=== PATIENT | male | born 1985 | race Caucasian/White ===

== ENCOUNTER 2017-02-27 15:00 | Emergency (ER) | payer SELFPAY ==
[2017-02-27 15:21] VITALS: RESP 16; TEMP 98
[2017-02-27] MEDS ORDERED: cefTRIAXone Inj 1 GM in Lidocaine Inj 1% 2.1 ML IM ONE (15:32)
--- NOTE | 2017-02-28 07:45 | PDOC ---
Upper Respiratory HPI - General Chief Complaint: Respiratory Complaint Stated Complaint: SORE THROAT, EARACHE Date Seen by Provider: 02/27/17 Time Seen by Provider: 15:15 Source: POSITIVE: Patient Exam Limitations: POSITIVE: No limitations Nurse's Notes Reviewed & Considered: Yes - History of Present Illness Initial Comments: The patient is a 31-year-old male. He states that for the past 3 days he's had a cough and mild sore throat. Over the past day or so he has developed left ear pain. He states his sputum is mucoid and "brownish". No chest pain. No known fevers or chills. No GI or symptoms. No rashes or skin changes. Timing: REPORTS: Gradual, Getting Worse Duration: >24 hours (Approximately 3 days) Severity: Moderate Quality: REPORTS: "Pain" (Left ear pain) Context: DENIES: Recent Foreign Travel, Insect Bite, Tick Bite, Multiple Pt's w / Same Sx, Recent Chemotherapy, Other Modifying Factors: improves with: Coughing. worse with: Rest, Exertion, OTC Cough Expectorant, OTC Cough Suppressant, Deep Breathing, Lying Flat, Heat, Cold , Other Associated Symptoms: REPORTS: Earache (Left ear pain), Runny Nose (Nasal congestion), Sinus Drainage, Sore Throat (Mild), Cough (As above). DENIES: Fever, Chills, Sweating, Sinus Pain, Hoarseness, Allergy, Hay Fever, Chest Pain , Bloody Cough, Productive Cough, Shortness of Breath, Hurts to Breathe, Headache, Other Similar Symptoms Previously: No Recently seen/treated/hospitalized: No Any Prior Injuries Related to Current Complaint?: No - Patient Home Medications Home Medications: Home Medications Amoxicillin 500 mg PO Q8H #30 cap 02/27/17 Ibuprofen 400 mg PO Q4H PRN 02/27/17 Lisinopril 10 mg PO DAILY 02/27/17 - Patient Allergies Allergies/Adverse Reactions: Allergies Allergy/AdvReac Type Severity Reaction Status Date / Time No Known Allergies Allergy Unverified 02/27/17 15:07 Past Medical History - heen HEENT History: Denies History Cardiovascular History: Hypertension Respiratory History: Denies History Gastrointestinal History: Denies History Genitourinary History: Denies History Endocrine History: Denies History Musculoskeletal History: Denies History Prosthesis or Implant: No Neurological History: Denies History Blood Disorders: Denies History Psychiatric History: Denies History History of Sexually Transmitted Diseases: No Male Reproductive History: Denies History Cancer History: Denies History In Past Year Been Physically Harmed or Verbally Threatened: No History of MDRO: No History of Other Communicable Diseases: No Tobacco Use: Never Smoker Alcohol Use: Occasionally Substance Use Type: None Previous Surgical History: No Past Medical History Reviewed: Reviewed - No Changes ROS - Limitations ROS Limitations: No Limitations Constitution: REPORTS: Denies Symptoms Cardiovascular: REPORTS: Denies Cardiac Symptoms Respiratory: REPORTS: Cough Productive. DENIES: Hurts To Breathe, Shortness Of Breath, Wheezing Neurological: REPORTS: Denies Neuro Symptoms Gastrointestinal: REPORTS: Denies GI Symptoms Endocrine: REPORTS: Denies Symptoms Musculoskeletal: REPORTS: Denies MS Symptoms Genitourinary: REPORTS: Denies Symptoms Eyes: REPORTS: Denies Symptoms ENT: REPORTS: Earache (Left), Congestion, Sore Throat (Mild) Skin: REPORTS: Denies Skin Symptoms Lympathic: REPORTS: Denies Lympathic Symptoms Immunologic: POSITIVE: Denies Symptoms Psychiatric: POSITIVE: Denies Psych Symptoms Upper Respiratory/Fever Exam - General Appearance General Appearance: REPORTS: Alert, Cooperative, No Acute Distress, No Evidence of Trauma - HEENT HEENT: POSITIVE: Head Inspection Nml, Eyes Inspection Nml, Oral/Dental Inspect. Nml, PERRL, EOMI, TM Erythema (Left), Purulent Nasal Drainage, Pharyngeal Erythema. NEGATIVE: Ears Inspection Nml (Left tympanic membrane inflamed), Nose Inspection Nml (Nasal congestion), Pharynx Inspect. Nml (Mildly erythematous), Pharyngeal Exudate - Neck Neck: REPORTS: Normal Inspection, Supple - Respiratory Respiratory: REPORTS: No Respiratory Distress, Breath Sounds Normal, No Pleuritic Chest Pain, Speaks Full Sentences, No Pain on Inspiration - Abdomen Abdomen: Soft: (All Quadrants), Normal Bowel Sounds: (All Quadrants), Denies Tenderness: (All Quadrants), No Splenomegaly: (All Quadrants), No Hepatomegaly: (All Quadrants), No Guarding: (All Quadrants), No Rebound: (All Quadrants), No Palpable Pulse: (All Quadrants), No Palpabale Mass: (All Quadrants), No Distention: (All Quadrants), No Rigidity: (All Quadrants) - Cardiovascular Cardiovascular: REPORTS: Regular Rate and Rhythm, Heart Sounds Normal, Equal Pulses, Strong Pulses, No Murmur, No Gallop, No Friction Rub, No JVD Peripheral Pulses: Radial (R): 2+, Radial (L): 2+ - Skin Skin: REPORTS: Intact, Normal For Race, Warm, Dry, No Rash - Extremities Extremity: Non-Tender: (All Extremities), Normal ROM: (All Extremities), Normal Inspection: (All Extremities) - Neurological / Psychological Neurological: POSITIVE: Oriented X3, manager operations and procurement Normal As Tested, Motor Normal, Sensation Normal, 5, 6 Upper Resp/Fever Progress - Patient's Progress Pain Medication Addressed: POSITIVE: Yes (Recommended Advil or Tylenol) School/Work Release Addressed: POSITIVE: Not Applicable Re-Examine Time: 15:35 Re-Examine Comment: Patient given 1 g of Rocephin IM and a prescription for amoxicillin 500 mg every 8 hours. Status: POSITIVE: Unchanged Air Movement: Good Antibiotics Given: Yes (Rocephin and amoxicillin as above) Nebulizer Treatment Given:: No - Consult Counseled: POSITIVE: Patient, RE: DX, RE: Need for F/U RX Given: Yes (amoxicillin 500 mg every 8 hours) Patient Care Time - Estimated PCT Patient Care Time (In Minutes): 20 Vital Signs - VS Reviewed Vital Signs Reviewed: Yes Discharge Clinical Impression: Otitis media, Acute bronchitis Discharge Disposition: Discharged to Home Condition: Fair Prescriptions / Orders: Amoxicillin 500 mg PO Q8H #30 cap Patient Instructions Given at Discharge: Otitis Media (ED), Upper Respiratory Infection (ED) Additional Instructions: You have an infection in your left ear, as well as a bronchitis. Please take amoxicillin, one tablet every eight yours. Also take one over the counter Zyrtec or Claritin tablet daily. Increase fluids. Follow up with your primary care provider. Return here as necessary. Follow Up With: NONE,NONE [Primary Care Provider] - (Instructions as above. Return as necessary. Follow up with your primary care provider.)
== END 2017-02-27 16:00 | disposition home or self-care (01) ==
LOC: ER 15:00
DX: J20.9 Acute bronchitis, unspecified (principal); H66.92 Otitis media, unspecified, left ear; J02.9 Acute pharyngitis, unspecified
CPT/HCPCS: 96372; 99282; J0696; J2001

== ENCOUNTER 2017-03-01 13:47 | Emergency (ER) | payer SELFPAY ==
--- NOTE | 2017-03-01 14:25 | PDOC ---
Ear Complaints HPI - General Chief Complaint: Ear Problem / Injury Stated Complaint: BLOODY DRAINAGE RIGHT EAR Date Seen by Provider: 03/01/17 Time Seen by Provider: 14:21 - History of Present Illness Initial Comments: Patient is a very nice 31-year-old male who presents to the emergency department with complaints of some bloody drainage out of his right ear. He apparently about a week and a 2:30 weeks ago started to have some cold and upper respiratory tract symptoms that started to cause some left ear symptoms. He was seen for this left ear pain and was started on amoxicillin and given a shot of Rocephin. He unfortunately started to get better in regards to his left ear but his right ear started to bother him more significantly and over the last day he has had some bloody drainage from that ear. He has not put anything in that ear is never injured the year in the past it does hurt him over the last couple days. He denies any fever or chills. He does have muffled hearing in that ear. He has no other upper respiratory symptoms currently and otherwise feels okay. - Patient Home Medications Home Medications: Home Medications Amoxicillin 500 mg PO Q8H #30 cap 02/27/17 Ibuprofen 800 mg PO Q4H PRN 02/27/17 Ciproflox/Dexamth Otic Susp [Ciprodex Otic Susp] 4 drp RIGHT EAR BID #1 bottle 03/01/17 Melatonin 3 mg PO BEDTIME PRN 03/01/17 - Patient Allergies Allergies/Adverse Reactions: Allergies Allergy/AdvReac Type Severity Reaction Status Date / Time No Known Allergies Allergy Verified 03/01/17 13:52 Past Medical History - heen HEENT History: Denies History Cardiovascular History: Hypertension Respiratory History: Denies History Gastrointestinal History: Denies History Genitourinary History: Denies History Endocrine History: Denies History Musculoskeletal History: Denies History Prosthesis or Implant: No Neurological History: Denies History Blood Disorders: Denies History Psychiatric History: Denies History History of Sexually Transmitted Diseases: No Cancer History: Denies History History of MDRO: No History of Other Communicable Diseases: No Alcohol Use: Occasionally Substance Use Type: None Previous Surgical History: No Past Medical History Reviewed: Reviewed - No Changes ROS - Limitations ROS Limitations: No Limitations Constitution: REPORTS: Denies Symptoms Cardiovascular: REPORTS: Denies Cardiac Symptoms Respiratory: REPORTS: Denies Resp Symptoms Neurological: REPORTS: Denies Neuro Symptoms Ear Complaint Exam - General Appearance General Appearance: POSITIVE: Alert, Cooperative, No Acute Distress - HEENT Head / Face: POSITIVE: Atraumatic, Normal Inspection Eyes: POSITIVE: Inspection Normal Ears: POSITIVE: Other (Left tympanic membrane is relatively normally does have an area of scarring to the posterior aspect of it no obvious erythema or bulging or other concerning findings. His right ear however does have some purulent appearing debris in the ear canal and on the tympanic membrane. Anterior portion of the tympanic membrane is covered with hematoma and it is difficult to tell whether the eardrum is intact completely or not. This appears different from a typical rupture and seems that the hematoma goes up into the soft tissue portion of the inner ear canal.) Ear Complaints Progress - Patient's Progress MDM / ED Course: I discussed with the patient that his right ear exam is somewhat odd. This does not look typical for simple otitis media or otitis interna. He does have a hematoma in there is difficult to know whether this was started from a rupture of his eardrum from infection or what the cause of this hematoma is. At any rate I am going to give him some Ciprodex eardrops to use and I like for him to have the ear reevaluated by his primary care provider towards the end of this week or first part of next. If things are not improving he may need to be evaluated by ear nose and throat. Patient Care Time - Estimated PCT Patient Care Time (In Minutes): 35 Vital Signs - VS Reviewed Vital Signs Reviewed: Yes (vitals benign at the time of exam) Discharge Clinical Impression: Otitis media Hematoma of ear, right Qualifiers: Encounter type: initial encounter Qualifier Code: (S00.431A) Contusion of right ear, initial encounter Discharge Disposition: Discharged to Home Condition: Stable Prescriptions / Orders: Ciproflox/Dexamth Otic Susp [Ciprodex Otic Susp] 4 drp RIGHT EAR BID #1 bottle Patient Instructions Given at Discharge: Ruptured Eardrum (ED), Otitis Media ( ED) Additional Instructions: Follow-up with primary care provider later this week or the first part of next week for reevaluation of your ear [place] Use Ciprodex drops as prescribed Return here with any new concerns questions or any issues. Follow Up With: NONE,NONE [Primary Care Provider] -
[2017-03-01 14:26] VITALS: RESP 15; TEMP 97.2
== END 2017-03-01 14:32 | disposition home or self-care (01) ==
LOC: ER 13:47
DX: H66.91 Otitis media, unspecified, right ear (principal); S00.431A Contusion of right ear, initial encounter
CPT/HCPCS: 99282